=== PATIENT | female | born 1995 | race African-American/Black ===

== ENCOUNTER 2018-06-23 16:25 | Emergency (ER) | payer SELFPAY ==
[2018-06-23 16:32] VITALS: BP 111/77
--- NOTE | 2018-06-23 16:53 | ER Document Report ---
ED General - General Chief Complaint: Abscess Stated Complaint: BITE Time Seen by Provider: 06/23/18 16:41 Notes: Patient is a 23-year-old female that presents to the emergency department for chief complaint of skin wound. Patient states that she believes she was bit by a spider 2 months ago, and since that time she is developed a rather large wound on her right calf, it has been present therefore as noted 2 months, singly more painful the last 2 weeks. She has been applying hydrogen peroxide on a frequent basis to the area, she also noted several spots on her foot, and now on her right arm. Denies prior history of any chronic medical conditions. She denies noting any fevers, chills, night sweats, nausea, vomiting or shortness of breath associated. She does not recall seeing the spider, or at size when this happened. Past Medical History: Denies chronic medical conditions Past Surgical History: Appendectomy, tonsillectomy Social History: Denies current tobacco, alcohol or drug use Family History: Reviewed and noncontributory for presenting illness Allergies: Reviewed, see documented allergy list. REVIEW OF SYSTEMS: Unless otherwise stated in this report the patient's positive and negative responses for review of systems for constitutional, eyes, ENT, cardiovascular, respiratory, gastrointestinal, neurological, genitourinary, musculoskeletal, and integumentary systems and related systems to the presenting problem are either as stated in the HPI or were not pertinent or were negative for the symptoms and/or complaints related to the presenting medical problem. PHYSICAL EXAMINATION: Vital signs reviewed, nursing noted reviewed. GENERAL: Well-appearing, well-nourished and in no acute distress. HEAD: Atraumatic, normocephalic. EYES: Eyes appear normal, extraocular movements intact, sclera anicteric, conjunctiva are normal. ENT: nares patent, oropharynx clear without exudates. Moist mucous membranes. NECK: Normal range of motion, supple without lymphadenopathy LUNGS: Breath sounds clear to auscultation bilaterally and equal. No wheezes rales or rhonchi. HEART: Regular rate and rhythm without murmurs ABDOMEN: Soft, nontender, normoactive bowel sounds. No rebound, guarding, or rigidity. No masses appreciated. EXTREMITIES: Nontender, good range of motion, no pitting or edema. NEUROLOGICAL: No focal neurological deficits. Moves all extremities spontaneously Motor and sensory grossly intact on exam. PSYCH: Normal mood, normal affect. SKIN: Warm, Dry, normal turgor, on the patient's right calf, there is an area measuring about 4 5 cm in diameter, with scaling, some eschar, and a few areas of purulence and very scant drainage, well-circumscribed, there is other areas and on the patient's ankle and foot, with similar appearance but smaller in size , measuring 1-1/2 cm in maximum diameter, patient also has an area of scaliness on her right upper extremity, without any associated erythema. There is no extension of erythema beyond these wounds that are noted. 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 TRAVEL OUTSIDE OF THE [place] IN LAST 30 DAYS: No - Related Data Allergies/Adverse Reactions: prochlorperazine [From Compazine] Allergy (Verified 06/23/18 16:28) Past Medical History - Social History Smoking Status: Never Smoker Family History: Reviewed & Not Pertinent Physical Exam - Vital signs Vitals: Temp Pulse Resp BP Pulse Ox 97.9 F 90 16 111/77 97 06/23/18 16:30 06/23/18 16:30 06/23/18 16:30 06/23/18 16:30 06/23/18 16:30 Course - Re-evaluation Re-evalutation: Patient seen and examined vital signs reviewed. Patient was evaluated and treated as appropriate for the patient's presenting symptoms and complaint, with consideration of any critical or life threatening conditions that may be associated with their obtained history and exam as noted above. Patient's clinical exam was most consistent with pyoderma gangrenosum, however will treat with antibiotics with Bactrim, Keflex and naproxen for pain. Give her a total course of antibiotics for 10 days, given referral to rheumatology and dermatology, as the patient will need a skin biopsy to confirm this diagnosis. Plan of care was discussed with the patient at this point, after careful consideration I feel that that patient can be discharged from the emergency department, the patient was educated treatments and reasons to return to the emergency department based on their presumed diagnosis as noted above, they were advised to followup with a primary care physician in 2-3 days. Patient was agreeable to plan of care. *Note is created using voice recognition software and may contain spelling, syntax or grammatical errors. - Vital Signs Vital signs: Temp Pulse Resp BP Pulse Ox 97.9 F 90 16 111/77 97 06/23/18 16:30 06/23/18 16:30 06/23/18 16:30 06/23/18 16:30 06/23/18 16:30 Discharge - Discharge Clinical Impression: Cellulitis Qualifiers: Site of cellulitis: extremity Site of cellulitis of extremity: lower extremity Laterality: right Qualified Code(s): L03.115 - Cellulitis of right lower limb Condition: Stable Disposition: HOME, SELF-CARE Instructions: Cellulitis ([facility]), Cephalexin ([facility]), Trimethoprim-Sulfa ([facility]) Additional Instructions: Please follow-up with dermatology or rheumatology, referrals given you need to make a phone call to set up an appointment, they are not automatically set up for you. Please take the antibiotics as prescribed, and the anti-inflammatory for pain. You can apply a triple antibiotic ointment if you would like, and wrap the leg if needed. Avoid peroxide, and alcohol. Prescriptions: Cephalexin Monohydrate [Keflex 500 mg Capsule] 500 mg PO Q8H #30 capsule Naproxen 500 mg PO Q12 #30 tablet Sulfamethoxazole/Trimethoprim [Bactrim Ds Tablet] 1 each PO BID #20 tablet Referrals: CANDE RODRIGUEZ MD [ACTIVE PROVISIONAL STAFF] - Follow up in 3-5 days ( dermatology) MARKY WARREN DO [ACTIVE STAFF] - Follow up in 3-5 days (dermatology, call for appointment.) RICHARD BOYER MD [ACTIVE STAFF] - Follow up in 3-5 days (rheumatology)
== END 2018-06-23 17:01 | disposition home or self-care (01) ==
LOC: ER 16:25
DX: L03.115 Cellulitis of right lower limb (principal); L98.8 Other specified disorders of the skin and subcutaneous tissue; Z88.8 Allergy status to other drugs, medicaments and biological substances
CPT/HCPCS: 99282